=== PATIENT | male | born 1975 | race Hispanic/Latino ===

== ENCOUNTER 2018-03-18 12:10 | Emergency (ER) | payer MEDICAID, OTHER ==
--- NOTE | 2018-03-18 12:16 | ED PDOC ---
Arrival/HPI - General Time Seen by Provider: 03/18/18 12:13 Historian: Patient - History of Present Illness Narrative History of Present Illness (Text): 03/18/18 12:30 A 42 year old male, with no significant past medical history, presents to the emergency department complaining of inversion injury to left ankle. Patient [place] Patient denies any other complaints at this time. No PMD Time/Duration: 24 hours Associated Symptoms (Text): 03/18/18 13:13 Inversion injury to [place]. There is tenderness laterally. No medial tenderness. Past Medical History - Provider Review Nursing Documentation Reviewed: Yes Family/Social History - Physician Review Nursing Documentation Reviewed: Yes Family/Social History: No Known Family HX Smoking Status: Light Smoker < 10 Cigarettes Daily Hx Alcohol Use: No Hx Substance Use: No Allergies/Home Meds Allergies/Adverse Reactions: Allergies Penicillins Allergy (Verified 03/18/18 12:23) ANAPHYLAXIS Review of Systems - Physician Review All systems were reviewed & negative as marked: Yes - Review of Systems Musculoskeletal: Other (inversion injury to left ankle yesterday) Physical Exam Vital Signs Reviewed: Yes Vital Signs Temp Pulse Resp BP Pulse Ox 03/18/18 12:36 139/84 03/18/18 12:11 98.6 F 89 18 100 Temperature: Afebrile Pulse: Regular Respiratory Rate: Normal Appearance: Positive for: Well-Appearing, Non-Toxic, Comfortable Pain Distress: None Mental Status: Positive for: Alert and Oriented X 3 - Systems Exam Head: Present: Atraumatic, Normocephalic Lower Extremity: Present: Tenderness (Left lateral ankle tenderness and swelling. No medial tenderness. Foot is nontender.), Swelling (lateral aspect of left ankle) Neurological: Present: GCS=15, CN II-XII Intact, Speech Normal, Motor Func Grossly Intact Skin: Present: Warm, Dry, Normal Color. No: Rashes Psychiatric: Present: Alert, Oriented x 3, Normal Insight, Normal Concentration Medical Decision Making ED Course and Treatment: 03/18/18 12:33 Impression: 42 year old female with left ankle inversion injury. Plan: -- Left Ankle X-Ray -- Reassess and disposition Progres - RAD Interpretation Radiology Orders: 03/18/18 12:27 ANKLE LEFT 3 VIEWS ROUTINE [RAD] Stat Ankle 3 view shows no fracture or dislocation. Ccu Nurse: Radiologist - Alciraibrafiq Statement The provider has reviewed the documentation as recorded by the Torrey Gonzalez Provider Scribe Provider Torrey Attestation: All medical record entries made by the Scribe were at my direction and personally dictated by me. I have reviewed the chart and agree that the record accurately reflects my personal performance of the history, physical exam, medical decision making, and the department course for this patient. I have also personally directed, reviewed, and agree with the discharge instructions and disposition. Disposition/Present on Arrival - Present on Arrival Any Indicators Present on Arrival: No History of DVT/PE: No History of Uncontrolled Diabetes: No Urinary Catheter: No History of Decub. Ulcer: No - Disposition Have Diagnosis and Disposition been Completed?: Yes Diagnosis: Ankle sprain Disposition: HOME/ ROUTINE Disposition Time: 13:30 Patient Plan: Discharge Patient Problems: Current Active Problems Problem Status Onset Ankle sprain Acute Condition: GOOD Discharge Instructions (ExitCare): Ankle Sprain Additional Instructions: Rest ice and elevation. Tylenol or Advil as directed on bottle as needed. Follow -up with PMD. Follow up in ER as needed. Referrals: FAMILY PROVIDER,NO [Primary Care Provider] - Follow up with primary Forms: WORK NOTE
[2018-03-18 12:27] VITALS: RESP 18; TEMP 98.6
--- NOTE | 2018-03-18 13:27 | RAD ---
Date of service: 03/18/2018 PROCEDURE: Left Ankle Radiographs. HISTORY: trauma COMPARISON: None FINDINGS: BONES: Normal. No fracture. JOINTS: Normal. No osteoarthritis. Ankle mortise maintained. Talar dome intact SOFT TISSUES: Mild lateral soft tissue swelling, nonspecific. OTHER FINDINGS: None. IMPRESSION: No fracture. Lateral soft tissue swelling.
[2018-03-18 15:36] VITALS: BP 136/86; PULSE 87; O2SAT 99
== END 2018-03-18 14:30 | disposition home or self-care (01) ==
LOC: ED 12:10
DX: S93.402A Sprain of unspecified ligament of left ankle, initial encounter (principal); X58.XXXA Exposure to other specified factors, initial encounter; Y93.01 Activity, walking, marching and hiking; Y92.520 Airport as the place of occurrence of the external cause